=== PATIENT | female | born 1940 | race Caucasian/White ===

== ENCOUNTER → 2024-11-13 | Outpatient (CLI) | payer MEDICARE, BC, SELFPAY ==
--- NOTE | 2024-11-13 13:00 | XR_ITS ---
Examination: Screening digital mammography, bilateral Computer aided detection 3-D breast Tomosynthesis, bilateral Date and time of exam: November 13, 2024 1238 hours Compared to mammograms dating to August 12, 2008 Indication: Screening, family history, daughter, breast cancer Technique: Nonmagnified MLO, CC views of the breasts to been obtained, reconstructed from 3-D Tomosynthesis images. R2 computer aided detection program utilized for evaluation of suspicious masses and/or abnormal calcifications. 3-D Tomosynthesis images obtained. Findings: Scattered areas of fibroglandular density Benign calcifications. No interval suspicious masses Impression: BI-RADS category II: Benign Findings. Recommend 1 year follow-up mammogram.
--- NOTE | 2024-11-13 13:15 | XR_ITS ---
Examination: Bone densitometry Date and time of exam:November 13, 2024 1253 hours INDICATIONS: Menopause age 52, family history, mother hip fracture, personal history osteopenia, vitamin D 3 years Technique: Lumbar spine and hip total bone mineralization values of an calculated. Peak reference and age match control results have been displayed. Findings: Lumbar spine total bone mineralization is0.890 gm/cm2. This is 1.4 standard deviations below peak reference. This is 1.3 standard deviations above age-matched controls. Hip total bone mineralization is 0.704 gm/cm2 This is 2.0 standard deviations below peak reference. This is 0.2 standard deviations above age-matched controls Impression: There is osteopenia based on lumbar spine measurements. There is osteoporosis based on hip measurements Lumbar mineralization is decreased 3.8% compared with June 15, 2021 Hip mineralization is decreased 4.1% compared with June 15, 2021
== END | disposition home or self-care (01) ==
LOC: CDIM 12:25
PROVIDERS: PCP Internal Medicine; Referring Provider Internal Medicine; Visit Provider Internal Medicine
DX: Z12.31 Encounter for screening mammogram for malignant neoplasm of breast (principal); R92.323 Mammographic fibroglandular density, bilateral breasts; R92.1 Mammographic calcification found on diagnostic imaging of breast; M85.88 Other specified disorders of bone density and structure, other site; M81.0 Age-related osteoporosis without current pathological fracture
CPT/HCPCS: 77063; 77067; 77080

== ENCOUNTER → 2025-04-14 | Outpatient (CLI) | payer MEDICARE, BC, SELFPAY ==
[2025-04-14 10:49] LABS: Basophils % (Auto) 1 % (0-2.5); Eosinophils # (Auto) 0.2 Thou/mm3 (0.0-0.5); Eosinophils % (Auto) 4 % (0-10); Hematocrit 40.2 % (36.0-46.0); Hemoglobin 12.9 g/dL (12.0-16.0); Immature Granulocytes % (Auto) 1 % (0-0); Immature Granulocytes Auto 0.03 Thou/mm3 (0.00-0.00); Lymphocytes # (Auto) 1.7 Thou/mm3 (1.0-4.8); Lymphocytes % (Auto) 32 % (10-50); Mean Corpuscular HGB Conc 32.1 g/dl (31.0-37.0); Mean Corpuscular Hemoglobin 28.7 pg (25.0-35.0); Mean Corpuscular Volume 90 fL (80-100); Monocytes # (Auto) 0.5 Thou/mm3 (0.0-0.8); Monocytes % (Auto) 10 % (0-12); Neutrophils # (Auto) 2.8 Thou/mm3 (1.8-7.7); Neutrophils % (Auto) 53 % (37-80); Nucleated Red Blood Cell % 0 /100 WBC (0); Platelet Count 212 Thou/mm3 (140-440); RDW Standard Deviation 43.8 fL (36.4-46.3); Red Blood Count 4.49 Miln/mm3 (4.00-5.20); White Blood Count 5.3 Thou/mm3 (3.6-11.0)
[2025-04-14 10:59] LABS: Glucose Estimated Average 111 mg/dL (80-131); Hemoglobin A1C 5.5 % Hgb (4.8-6.0)
[2025-04-14 11:10] LABS: Collection Type, Urine Clean Catch
[2025-04-14 11:14] LABS: Vitamin B12 360 pg/mL (211-911)
[2025-04-14 11:34] LABS: Bilirubin,Urine Negative (Negative); Blood,Urine Trace (Negative); Color,Urine Lt-Yellow (Lt Yel-Yel); Glucose, Urine Negative (Negative); Ketones,Urine Negative (Negative); Leukocyte Esterase,Urine Positive (Negative); Nitrite,Urine Negative (Negative); PH,Urine 5.5 (5.0-7.0); Protein,Urine Negative (Neg - Trace); RBC,Urine 9 /hpf (0-3); Specific Gravity,Urine 1.025 (1.001-1.035); Squamous Epithelial Cell,Urine 2 /hpf (0-5); Urobilinogen,Urine Negative mg/dL (0.0-1.0); WBC,Urine 8 /hpf (0-5)
[2025-04-14 11:34] LABS: Alanine Aminotransferase 9 U/L (10-49); Albumin/Globulin Ratio 1.7 (1.2-2.2); Alkaline Phosphatase 64 U/L (46-116); Anion Gap 11 (7-16); BUN/Creatinine Ratio 23 Ratio (12-20); Bilirubin,Total 0.5 mg/dL (0.3-1.2); Blood Urea Nitrogen 18 mg/dL (9-23); Calcium 8.5 mg/dL (8.3-10.6); Calcium (Corrected) 8.5 mg/dL (8.5-10.1); Carbon Dioxide 28.1 mMol/L (20.0-31.0); Cardiac Risk Estimate 3.2 RATIO (3.7-5.6); Chloride 106 mMol/L (98-107); Cholesterol 184 mg/dL (132-200); Creatinine (Component) 0.8 mg/dL (0.6-1.3); Globulin 2.4 gm/dL (2.3-3.5); Glucose 93 mg/dL (74-106); HDL Cholesterol 57 mg/dL (40-60); LDL Cholesterol,Calculated 108 mg/dL (0-130); Osmolality,Calculated 290 (275-295); Potassium 4.3 mMol/L (3.4-5.1); Sodium 145 mMol/L (136-145); Thyroid Stimulating Hormone 1.45 uIU/mL (0.55-4.78); Total Protein 6.4 gm/dL (5.7-8.2); Triglycerides 94 mg/dL (30-150); Uric Acid 5.7 mg/dL (3.1-7.8); eGFR > 60 See Note
[2025-04-14 11:35] LABS: Clarity,Urine Hazy (Clear/Hazy)
== END | disposition home or self-care (01) ==
LOC: COPL 10:09
PROVIDERS: PCP Internal Medicine; Referring Provider Internal Medicine; Visit Provider Internal Medicine
DX: Z00.00 Encounter for general adult medical examination without abnormal findings (principal); E78.5 Hyperlipidemia, unspecified; R73.03 Prediabetes
CPT/HCPCS: 36415; 80053; 80061; 81001; 82306; 82607; 83036; 84443; 84550; 85025

== ENCOUNTER 2025-06-19 09:55 | Emergency (ER) | payer MEDICARE, BC, SELFPAY ==
[2025-06-19 09:57] VITALS: BMI 33.2
[2025-06-19 10:11] VITALS: BP 128/79; PULSE 55; RESP 18; TEMP 36.4; O2SAT 96
--- NOTE | 2025-06-19 10:15 | XR_ITS ---
Examination: Hand, left 3 views Technique: Hand AP, oblique, lateral 3 views Date and time of exam: June 19, 2025 1016 hours INDICATIONS: Ground-level fall today with injury to the hand, hand pain FINDINGS: Acute impacted displaced fractures fourth and fifth metacarpal necks Dislocation third metacarpal phalangeal joint Severe osteopenia No foreign body IMPRESSION: Impacted displaced fractures distal fourth and fifth metacarpals Dislocation at the third metacarpophalangeal joint
--- NOTE | 2025-06-19 10:15 | XR_ITS ---
Examination: Wrist, left 3 views Technique: Wrist AP, oblique, lateral 3 views Date and time of exam: June 19, 2025 1016 hours INDICATIONS: Ground-level fall this morning with injury to the hand and wrist, wrist pain hand pain FINDINGS: No acute wrist fracture Please see the hand report IMPRESSION: No acute wrist fracture
--- NOTE | 2025-06-19 10:16 | PD.EDADULT ---
ED General RME/HPI General Chief complaint: Hand/Wrist Problems Stated complaint: LEFT HAND INJURY AFTER FALL Time Seen by Provider: 06/19/25 10:05 Source: patient Arrival date/time: 06/19/25 09:55 CC: Left hand pain HPI patient tripped over her dogs and fell HPI onset approximately 2 hours ago patient complains only of localized left wrist and hand as well as finger pain. Denies LOC or ALOC denies nausea vomiting chest pain back pain leg pain hip pain or foot pain. Patient mid she has a small abrasion to her right knee. Not current on tetanus. Related Data Home Medications ?Medication ?Instructions ?Recorded ?Confirmed oxybutynin chloride 5 mg tablet 5 mg PO HS OVERACTIVE BLADDER #0 03/01/15 tabs ibuprofen 200 mg tablet 200 mg PO QDAY PRN Pain 06/03/19 06/03/19 Allergies Allergy/AdvReac Type Severity Reaction Status Date / Time azithromycin Allergy Severe Swelling Verified 06/19/25 09:57 Penicillins Allergy Severe Swelling Verified 06/19/25 09:57 codeine Allergy Mild Rash Verified 06/19/25 09:57 Review of Systems Review of Systems Narrative Review of Systems: GEN: No fever, no chills, no weight loss EYES: No discharge, no visual changes, no pain HEENT: No ear pain, no congestion, no sore throat PULM: No shortness of breath, no cough, no congestion CV: No chest pain, no dyspnea on exertion, no palpitations GI: No nausea, no vomiting, no diarrhea, no pain, no constipation : No frequency, no urgency, no dysuria MUSC/SKEL: + joint pain, no back pain SKIN: No rash PSYCH: No hallucinations, no depression HEME/LYMPH: No easy bleeding or bruising tendencies NEURO: No weakness, no headache Past Medical History Past Medical History NEUROLOGIC: Negative Seizures CARDIAC: Negative Congestive Heart Failure RESPIRATORY: Positive Chronic Obstructive Pulmonary Disease (COPD) GENITOURINARY: Negative Renal Disease MUSCULOSKELETAL: Positive Osteoporosis ENDOCRINE: Negative Diabetes Mellitus Type 1 or Diabetes Mellitus Type 2 OTHER HISTORY: Negative Blood Transfusions, Blood Transfusion Reaction or Anesthesia Reactions Social History SMOKING STATUS: Former smoker ED Exam Narrative Physical exam: [General: Obese in mild discomfort but not in any acute distress Head normocephalic no step-offs depressions induration ulcerations or lacerations HEENT: Eyes pupils are PERRLA EOMs are intact mouth pink moist membranes uvula is midline swallow symmetrical phonation is normal. All the subsystems of HEENT are within acceptable limits Neck is supple nontender no tenderness with palpation of the spinous process full range of motion flexion extension and lateral rotation. Chest equal chest rise nontender to palpation Respiratory: Clear to auscultation no wheezes crackles or rubs CV: Rate rhythm is regular no murmurs rubs or clicks Abdomen is distended secondary to body habitus soft nontender no masses positive bowel sounds all 4 quadrants Back: No CVA tenderness no spinous process tenderness from cervical spine thoracic and lumbar spine Skin: Mild partial-thickness abrasion to right knee, both dorsal and medial or palmar ecchymosis to the left hand, otherwise skin is intact no petechiae rash induration ulceration or crepitus Extremities: Decreased range of motion of the left upper extremity digits 2 through 4 secondary to pain in the base of the hand over the MCPs and extending into digits 2 3 and 4 ecchymosis as described above. Cap refill less than 2 seconds neurosensory intact. Moving all other extremities against resistance cap refill less than 2 seconds neurosensory intact., Observed ambulating without complication Neuro: Awake alert oriented x3 Glascow coma 15 no focal deficits] cranial nerves II through XII are grossly intact. Course Quality Measures none Orders Category Date Time Status XR hand comp LT min 3V Stat Exams 06/19/25 10:15 Completed XR hand comp LT min 3V Stat Exams 06/19/25 12:10 Completed XR wrist comp LT min 3V Stat Exams 06/19/25 10:15 Completed Lidocaine 1% 20 ml [Xylocaine 1% 20 ML] Med 06/19/25 10:33 Discontinued 20 ml INFL X1 ONE TET,DIP/PERT AC (Adult)-Tdap [Boostrix Adult (Tdap) Med 06/19/25 10:15 Discontinued Vacc] 0.5 ml IMI .ONCE ONE Vital Signs Vital signs: Vital Signs Temperature 97.6 F 06/19/25 10:11 Pulse Rate 55 L 06/19/25 10:11 Respiratory Rate 18 06/19/25 10:11 Blood Pressure 128/79 06/19/25 10:11 Pulse Oximetry (%) 96 06/19/25 10:11 Oxygen Delivery Method Room Air 06/19/25 10:11 PROCEDURES: Procedure Comment Verbal consent obtained, relocation of the third MCP. Anesthesia 1% lidocaine without epinephrine 5 mL injected to both sides of the base of the MCP providing sufficient anesthesia and longitudinal traction showed realignment confirmed by x-ray patient tolerated the procedure well. Brace applied to the hand. Discharge Plan Plan Patient Disposition: HOME (Self Care) Patient condition on transfer: Stable Prescriptions/Referrals Prescriptions/Med Rec: No Action oxybutynin chloride 5 MG tablet 5 mg PO HS Qty: 0 ibuprofen 200 mg Tablet 200 mg PO QDAY PRN (Reason: Pain) Referrals: Irineo Hammer MD [Physician] - In 1 week Todd Salas MD [Primary Care Provider] - In 1 week Problem List Clinical Impression: Fracture of hand, Dislocated finger Patient/Caregiver Discharge Instructions Education Materials: Treating Hand Fractures, ED Finger Dislocation Additional Instructions: Ibuprofen or Tylenol for pain keep the splint on until seen by an orthopedic doctor. If is worsening of symptoms return the emergency room medially for further evaluation. Print Language: Swedish Stand Alone Forms: Kaylee Award Info., Patient Portal Info Letter PA/WILL Supervising Physician PA/WILL Supervising Physician: Rober Estrada ENP [facility] Clinical Information Provided by patient Medical Records Reviewed [facility] Meds/Rx Considered, not Ordered None Labs/Rad/Tests considered, not Ordered None Chronic Illness/Social Conditions which may negatively complicate care or outcome(s)-explain: None or not applicable EKG EKG not done Lab Interpretation Labs: none Imaging Provider imaging interpretation(s): Initial hand x-ray shows third MCP dislocation and 2nd and 3rd MCP distal fracture with angulation. Wrist x-ray is negative for any acute finding as interpreted by radiology. Postreduction films confirms a real relocation of the MCP. Medication Administration(s) Medication Administration History Discontinued Medications Diphtheria/Tetanus/Acell Pertussis (Diphth,Pertuss(Acell),Tet Vac 0.5 Ml Syr- Adult) 0.5 ml IMi .ONCE ONE Stop: 06/19/25 10:16 Last Admin: 06/19/25 10:46 Dose: 0.5 ml Documented By: JUAN Lidocaine HCl (Lidocaine Hcl 1% 20 Ml Vial) 20 ml INFL X1 ONE Stop: 06/19/25 10:34 Last Admin: 06/19/25 10:46 Dose: 20 ml Documented By: JUAN Diagnosis Differential diagnosis: Fracture dislocation contusion Differential dx and/or dx ruled out: Or actual dislocation of digits in the hand Dispositon Disposition: Discharge Home
[2025-06-19] MEDS: LIDOCAINE HCL 1% 20 ML VIAL INFL (10:46)
[2025-06-19] MEDS: DIPHTH,PERTUSS(ACELL),TET VAC 0.5 ML SYR- ADULT IMi (10:46)
--- NOTE | 2025-06-19 12:10 | XR_ITS ---
Examination: Hand, left 3 views Technique: Hand AP, oblique, lateral 3 views Date and time of exam: June 19, 2025 1237 hours INDICATIONS: Dislocation third metacarpal phalangeal joint on hand films June 19, 2025 10:18 AM this morning, post reduction films. FINDINGS: Successful reduction dislocation third metacarpal phalangeal joint No significant change in fractures distal fourth and fifth metacarpals IMPRESSION: Successful reduction dislocation third metacarpal phalangeal joint
== END 2025-06-19 15:59 | disposition home or self-care (01) ==
PROVIDERS: Emergency Provider Family Medicine; PCP Internal Medicine
DX: S62.335A Displaced fracture of neck of fourth metacarpal bone, left hand, initial encounter for closed fracture (principal); S62.337A Displaced fracture of neck of fifth metacarpal bone, left hand, initial encounter for closed fracture; S63.263A Dislocation of metacarpophalangeal joint of left middle finger, initial encounter; S80.211A Abrasion, right knee, initial encounter; E66.9 Obesity, unspecified; Z23 Encounter for immunization; Z68.33 Body mass index [BMI] 33.0-33.9, adult; Z88.1 Allergy status to other antibiotic agents; Z88.0 Allergy status to penicillin; Z88.5 Allergy status to narcotic agent; Z87.891 Personal history of nicotine dependence; W01.0XXA Fall on same level from slipping, tripping and stumbling without subsequent striking against object, initial encounter
CPT/HCPCS: 26700; 73110; 73130; 90471; 90715; 99283; J3490

== ENCOUNTER → 2025-06-29 | Outpatient (CLI) | payer MEDICARE, BC, SELFPAY ==
--- NOTE | 2025-06-29 | XR_ITS ---
Examination: Hand, left 3 views Technique: Hand AP, oblique, lateral 3 views Date and time of exam: June 29, 2025, 11:19 AM, comparison June 19, 2025 INDICATIONS: Fractures fourth and fifth metacarpals dislocation third metacarpophalangeal joint June 19, 2025. FINDINGS: Dislocation third metacarpophalangeal joint has been reduced Impacted fractures fourth and fifth metacarpals again noted with satisfactory alignment IMPRESSION: Impacted fractures distal fourth and fifth metacarpals with satisfactory alignment
--- NOTE | 2025-06-29 | XR_ITS ---
Examination: Wrist, left 3 views Technique: Wrist AP, oblique, lateral 3 views Date and time of exam: June 29, 2025, 1119 hours comparison June 19, 2025 INDICATIONS: Fractures fourth and fifth metacarpals, dislocation third metacarpophalangeal joint June 19, 2025 FINDINGS: Dislocation third metacarpophalangeal joint has been reduced with satisfactory alignment Impacted fractures distal fourth and fifth metacarpals with satisfactory alignment IMPRESSION: Impacted fractures distal fourth and third metacarpals with satisfactory alignment
== END | disposition home or self-care (01) ==
LOC: CDIM 11:07
PROVIDERS: PCP Internal Medicine; Referring Provider Nurse Practitioner Gerontology; Visit Provider Nurse Practitioner Gerontology
DX: S62.395A Other fracture of fourth metacarpal bone, left hand, initial encounter for closed fracture (principal); S62.307A Unspecified fracture of fifth metacarpal bone, left hand, initial encounter for closed fracture; X58.XXXA Exposure to other specified factors, initial encounter
CPT/HCPCS: 73110; 73130

== ENCOUNTER → 2025-07-09 | Outpatient (CLI) | payer MEDICARE, BC, SELFPAY ==
--- NOTE | 2025-07-09 | XR_ITS ---
Examination: Hand, left 3 views Technique: Hand AP, oblique, lateral 3 views Date and time of exam: July 09, 2025 1241 hours INDICATIONS: Acute fractures distal fourth and fifth metacarpals and dislocation of the third metacarpal phalangeal joint on hand films June 19, 2025 FINDINGS: Stable alignment impacted fractures distal with and fifth metacarpals Dislocation at the third metacarpal phalangeal joint is no longer identified Severe osteopenia IMPRESSION: Stable alignment impacted fractures distal fourth and fifth metacarpals
== END | disposition home or self-care (01) ==
PROVIDERS: PCP Internal Medicine; Referring Provider Surgery; Visit Provider Surgery
DX: S62.305A Unspecified fracture of fourth metacarpal bone, left hand, initial encounter for closed fracture (principal); S62.307A Unspecified fracture of fifth metacarpal bone, left hand, initial encounter for closed fracture; X58.XXXA Exposure to other specified factors, initial encounter
CPT/HCPCS: 73130

== ENCOUNTER → 2025-08-05 | Outpatient (CLI) | payer MEDICARE, BC, SELFPAY ==
--- NOTE | 2025-08-05 | XR_ITS ---
Examination: Hand, left 3 views Technique: Hand AP, oblique, lateral 3 views Date and time of exam: August 05, 2025 1551 hours, comparison June 29, 2025 INDICATIONS: Patient fell one month ago with impacted fractures distal fourth and fifth metacarpals FINDINGS: Partial healing impacted fractures distal fourth and fifth metacarpals with stable and satisfactory alignment IMPRESSION: Partial healing impacted fractures distal fourth and fifth metacarpals with stable and satisfactory alignment
--- NOTE | 2025-08-05 15:31 | XR_ITS ---
Examination: Wrist, left 3 views Technique: Wrist AP, oblique, lateral 3 views Date and time of exam: August 05, 2025, 1534 hours INDICATIONS: Patient fell one month ago with injury to the wrist, wrist pain FINDINGS: Prominent osteopenia Healing fractures, impacted distal fourth and fifth metacarpophalangeal carpals Carpal bones intact IMPRESSION: Stable alignment and early healing impacted fractures distal fourth and fifth metacarpals
== END | disposition home or self-care (01) ==
PROVIDERS: PCP Internal Medicine; Referring Provider Nurse Practitioner Gerontology; Visit Provider Nurse Practitioner Gerontology
DX: S62.395A Other fracture of fourth metacarpal bone, left hand, initial encounter for closed fracture (principal); S62.397A Other fracture of fifth metacarpal bone, left hand, initial encounter for closed fracture; W19.XXXA Unspecified fall, initial encounter
CPT/HCPCS: 73110; 73130

== ENCOUNTER → 2025-09-01 | Outpatient (CLI) | payer MEDICARE, BC, SELFPAY ==
--- NOTE | 2025-09-01 12:35 | XR_ITS ---
Examination: Hand, left 3 views Technique: Hand AP, oblique, lateral 3 views Date and time of exam: August 24, 2025, 1317 hours, comparison 07/09/2025 INDICATIONS: Acute fractures June 19, 2025 distal fourth and fifth metacarpals FINDINGS: Severe osteopenia Significant partial healing fractures distal fourth and fifth metacarpals with satisfactory alignment IMPRESSION: Significant partial healing fractures distal fourth and fifth metacarpals with satisfactory alignment
== END | disposition home or self-care (01) ==
LOC: CDIM 12:25
PROVIDERS: PCP Internal Medicine; Referring Provider Nurse Practitioner Gerontology; Visit Provider Nurse Practitioner Gerontology
DX: S62.395A Other fracture of fourth metacarpal bone, left hand, initial encounter for closed fracture (principal); S62.397A Other fracture of fifth metacarpal bone, left hand, initial encounter for closed fracture; X58.XXXA Exposure to other specified factors, initial encounter
CPT/HCPCS: 73130

== ENCOUNTER → 2025-09-21 | Outpatient (CLI) | payer MEDICARE, BC, SELFPAY ==
--- NOTE | 2025-09-21 14:08 | XR_ITS ---
Examination: Hand, left Technique: Hand AP, oblique, lateral 3 views Date and time of exam: September 21, 2025, 1412 hours INDICATION: Patient fell 3 months ago with injury to the hand, hand pain. FINDINGS: Severe osteopenia Stable fractures fourth and fifth distal metacarpals with significant partial healing No new fractures No dislocations IMPRESSION: Significant partial healing fractures distal fourth and fifth metacarpals compared with September 01, 2025
== END | disposition home or self-care (01) ==
PROVIDERS: Referring Provider Nurse Practitioner Gerontology; Visit Provider Nurse Practitioner Gerontology
DX: S62.395A Other fracture of fourth metacarpal bone, left hand, initial encounter for closed fracture (principal); S62.397A Other fracture of fifth metacarpal bone, left hand, initial encounter for closed fracture; W19.XXXA Unspecified fall, initial encounter
CPT/HCPCS: 73130